=== PATIENT | female | born 1985 | race Caucasian/White ===

== ENCOUNTER 2019-08-25 07:03 | Day surgery (SDC) | payer OTHER ==
[2019-08-24 11:19] VITALS: BMI 42.7
--- NOTE | 2019-08-25 11:00 | RAD ---
XR Lumbar Punct Only W/Fluoro History: Idiopathic intracranial hypertension Comparison: MRI brain August 04, 2019 Findings: Patient was brought to the fluoroscopy suite. All questions were answered. Informed consent was obtained. Timeout performed. The patient's back was prepped and draped in normal sterile fashion. Using fluoroscopic guidance the L3/L4 interspace was accessed with a 22-gauge needle. A total of 20 mL of clear CSF was removed. The patient tolerated the procedure well without complication. Opening pressure: 22 cm water Closing pressure: 12 cm water Impression: Technically successful fluoroscopic guided lumbar puncture. Fluoroscopy time: 0.2 minutes
[2019-08-25] MEDS ORDERED: FLU VACC QS2019-20(6MOS UP)/PF 60 MCG/0.5 ML SYRINGE IM ONE (11:30)
== END 2019-08-25 10:15 | disposition home or self-care (01) ==
LOC: RAD 07:03
PROVIDERS: ATTEND Neurological Surgery
PROC: 00JU3ZZ Inspection of Spinal Canal, Percutaneous Approach (ICD-10-PCS; principal; 2019-08-25)
DX: G93.2 Benign intracranial hypertension (principal); Z87.891 Personal history of nicotine dependence
CPT/HCPCS: 62270; 84702